=== PATIENT | male | born 1945 | race Caucasian/White ===

== ENCOUNTER 2016-06-30 06:13 | Day surgery (SDC) | payer OTHER ==
[2016-06-24 09:58] VITALS: BMI 25.8
--- NOTE | 2016-06-27 15:49 | HP ---
REASON FOR ADMISSION: Left heart cath, possible angioplasty. BRIEF CLINICAL HISTORY: This 70-year-old male with past medical history significant for coronary art ino disease, status post a stent in 02/2006 and 03/25/2011, hypertension, hyperlipidemia, anemia, wit h recent abnormal stress test and was having chest pain. So, the patient is scheduled for elective c ardiac cath and possible angioplasty. PAST MEDICAL HISTORY: Significant for coronary artery disease, status post a stent 2005, 2010, anemi a, hypertension, hyperlipidemia, type 2 diabetes SOCIAL HISTORY: Denies any history of smoking. Recent cardiac workup as follows: The patient had a stress test on 06/18/2016 that shows normal myoc ardial perfusion study, but during the stress test, the patient underwent 4 minutes and 32 Charles prot ocol. Due to shortness of breath stopped. The patient developed shortness of breath, and 1-[address] depression in II, III, aVF and read by Dr. Moore as a positive abnormal stress test. The nuclear sc an was negative. The patient had previous cardiac workup as patient had an angioplasty in 2005 where a stent was done, multivessel PTCA with stenting of the second diagonal, 1 was done with DUANE deploye d, mid LAD another stent was done and right RPDA stent was done. CURRENT MEDICATIONS: The patient is taking allergy medication, cetirizine, aspirin, gabapentin, enal priya, clopidogrel, atorvastatin, metformin, glyburide, metoprolol. REVIEW OF SYSTEMS: As per HPI. The patient complained of tightness in the chest and shortness of br eath. PHYSICAL EXAMINATION: VITAL SIGNS: Temperature afebrile, heart rate 70, blood pressure 130/80. HEENT: PERRLA. Extraocular muscles intact. NECK: Supple. No carotid bruits. No thyromegaly. CHEST: Clear to auscultation. HEART: S1, S2 regular. ABDOMEN: Soft. EXTREMITIES: Clubbing and cyanosis negative. BLOOD WORKUP: Pending. IMPRESSION: Abnormal stress test, tightness in the chest, history of coronary artery disease, status post stent in 2005 and 2010, diabetes, hypertension, hyperlipidemia, abnormal stress test. RECOMMENDATION: Further recommendation after the stress. We will follow with you. Thank you, Dr. oMore/Dr. Altamirano, for providing us the opportunity in taking care of the patient. We will follow with you. Adonis Mars MD cc: [id number] TT: 06/27/2016 15:49:17 tn
[2016-06-30] MEDS ORDERED: Lidocaine 2% Inj (20ml) ONE (06:37)
[2016-06-30] MEDS ORDERED: Nitroglycerin 50mg in D5W 250 ML IV ONE (06:38)
[2016-06-30] MEDS ORDERED: Iodixanol 320 MG/ML 100 ML BOTTLE IV ONE (06:38)
[2016-06-30] MEDS ORDERED: Iodixanol 320 MG/ML 200 ML BOTTLE IV ONE (06:38)
[2016-06-30] MEDS ORDERED: Iohexol 350mgl/ml 50 ML ONE (06:38)
[2016-06-30 06:46] LABS: ADD MANUAL DIFF? NO
[2016-06-30 07:02] LABS: INR 1.07 (0.93-1.08); PARTIAL THROMBOPLASTIN TIME 25.2 Seconds (23.7-30.8)
[2016-06-30 07:03] LABS: BLOOD UREA NITROGEN 17 mg/dL (7-21); CALCIUM 9.5 mg/dL (8.4-10.5); CARBON DIOXIDE 23 mmol/L (21-33); CHLORIDE 101 mmol/L (98-107); GFR AFRICAN-AMERICAN > 60; GLUCOSE,RANDOM 111 mg/dL (70-110); POTASSIUM 4.8 mmol/L (3.6-5.0); SODIUM 141 mmol/L (132-148)
[2016-06-30 07:10] LABS: BASO # 0.04 [, K/mm3] (0.0-2.0); BASO % 0.4 % (0.0-3.0); EOS # 0.4 (0.0-0.7); EOS % 3.4 % (1.5-5.0); GRAN % 60.4 % (50.0-68.0); HEMATOCRIT 39.4 % (42.0-52.0); LYMPH # 2.9 (1.2-3.4); LYMPH % 26.2 % (22.0-35.0); MEAN CELL VOLUME 85.8 fL (80.0-105.0); MEAN CORPUSCULAR HEMOGLOBIN 29.8 pg (25.0-35.0); MEAN CORPUSCULAR HGB CONC 34.8 g/dl (31.0-37.0); MEAN PLATELET VOLUME 11.5 fl (7.0-11.0); MONO # 1.1 (0.1-0.6); MONO % 9.6 % (1.0-6.0); PLATELET COUNT 249 [, 10^3/uL] (120.0-450.0); RED CELL DISTRIBUTION WIDTH 12.9 % (11.5-14.5); WHITE BLOOD COUNT 11.1 [, 10^3/ul] (4.5-11.0)
[2016-06-30] MEDS ORDERED: Phenylephrine 10 mg/ml Inj ONE (07:10)
[2016-06-30] MEDS ORDERED: Midazolam 2 MG/2 ML VIAL ONE ×2 (07:18→08:35)
[2016-06-30] MEDS ORDERED: Eptifibatide 20 mg/10mL Inj IVP ONE (08:14)
[2016-06-30] MEDS ORDERED: Sodium Chloride 0.9% 1,000 ML IV SCH (09:30)
--- NOTE | 2016-06-30 11:44 | CARD ---
APPROVED REPORT EKG Measurement Heart [id number] <Conclusion> Sinus bradycardia T wave abnormality, consider inferior ischemia Abnormal ECG
[2016-06-30 12:44] LABS: ADD MANUAL DIFF? NO
[2016-06-30 12:49] LABS: BASO # 0.02 [, K/mm3] (0.0-2.0); BASO % 0.2 % (0.0-3.0); EOS # 0.3 (0.0-0.7); EOS % 2.8 % (1.5-5.0); GRAN # 5.45 (1.4-6.5); GRAN % 54.2 % (50.0-68.0); HEMATOCRIT 33.8 % (42.0-52.0); LYMPH # 3.4 (1.2-3.4); LYMPH % 33.9 % (22.0-35.0); MEAN CELL VOLUME 85.4 fL (80.0-105.0); MEAN CORPUSCULAR HEMOGLOBIN 30.3 pg (25.0-35.0); MEAN CORPUSCULAR HGB CONC 35.5 g/dl (31.0-37.0); MONO # 0.9 (0.1-0.6); MONO % 8.9 % (1.0-6.0); PLATELET COUNT 205 [, 10^3/uL] (120.0-450.0); RED CELL DISTRIBUTION WIDTH 12.7 % (11.5-14.5)
[2016-06-30 12:55] LABS: BLOOD UREA NITROGEN 14 mg/dL (7-21); CALCIUM 8.8 mg/dL (8.4-10.5); CARBON DIOXIDE 25 mmol/L (21-33); CHLORIDE 101 mmol/L (95-110); GFR AFRICAN-AMERICAN > 60; GLUCOSE,RANDOM 127 mg/dL (70-110); POTASSIUM 4.1 mmol/L (3.6-5.0); SODIUM 136 mmol/L (132-148)
[2016-06-30] MEDS ORDERED: Bacitracin 500 Units/gm Oint Foilpak UD ONE (14:19)
[2016-06-30 18:17] VITALS: BP 140/71; PULSE 67; RESP 20; TEMP 98.1; O2SAT 100
--- NOTE | 2016-06-30 18:19 | CARD ---
APPROVED REPORT Procedure(s) performed: Left Heart Catheterization PTCA with Balloon Angioplasty of D1 HISTORY The patient is a 70 year-old male with a history of : previous PCI (The PCI date was 03/25/2011), hypertension , dyslipidemia , Hx of CAD , S/P Multiple PTCA 7-8 stents, in 03/12/2006 and 03/25/2011 now developed new onset angina and abnormal stresstest.. INDICATION The indication(s) include : positive stress test, dyspnea. CASE TECHNIQUE The patient was brought electively to the Cardiac Catheterization Laboratory in a fasting state and was prepped and draped in a sterile manner. The left wrist was infiltrated with 2% Lidocaine subcutaneous anesthesia. A sheath was inserted into the left radial artery without difficulty. Coronary angiography was performed using coronary diagnostic catheters. The left coronary system was accessed and visualized with a Diagnostic ,JL3.5, 5Fr catheter. The right coronary system was accessed and visualized with a Diagnostic , JR4.0,5Fr catheter. The left ventricle was accessed and visualized with a pigtail catheter. Left ventricular/Aortic Valve gradient assessed on pullback. Left ventriculogram was performed in DEAN projection. Closure device was deployed with a 6 Fr Angio-Seal without any complications. The patient tolerated the procedure well and there were no complications associated with the procedure. Cath started from left Radial and comple cath done, but could not take Guider for PTCA b/c of severe spasm of left radial , so PTCA done with Right Femoral artery. Vessel Analysis The patient's coronary anatomy is right dominant. The left main coronary artery is a large size vessel without significant stenosis. The left main bifurcates to the left anterior descending and circumflex. The left anterior descending artery is a medium size vessel with diffuse calcification noted throughout this vessel and without significant stenosis. patent stent in oroximal and Mid to distal LAD The first diagonal branch is a medium size vessel with diffuse calcification noted throughout this vessel and with significant stenosis. Proximal end of setnt has 95% stenosis There is a 95% stenosis in the proximal segment. The second diagonal branch is a small size vessel with diffuse calcification noted throughout this vessel and without significant stenosis. The circumflex artery is a medium size vessel with diffuse calcification noted throughout this vessel and without significant stenosis. The first obtuse marginal branch is a medium size vessel with diffuse calcification noted throughout this vessel and without significant stenosis. patent stent noted The right coronary artery is a large size vessel with diffuse calcification noted throughout this vessel and without significant stenosis. patent stent noted distally The right posterior descending artery is a medium size vessel with diffuse calcification noted throughout this vessel and without significant stenosis. patent stent noted proximally Left Ventricle The left ventricle is normal in size with normal contractility. There was no cardiomyopathy. The left ventricular ejection fraction is estimated to be 65%. The left ventricular end diastolic pressure is 14 mmHg. There was no gradient across the aortic valve upon pullback. PCI Technique Lesion Anticoagulation was achieved with Heparin. Percutaneous coronary intervention was performed on the first diagnonal branch segment. The lesion stenosis prior to intervention was 95% with YNES 1 flow. A 6 Fr XB 3 Guide Catheter was used to engage the ostium. BALLOON DILATION A Balloon catheter 2.5 x 8 mm Trek RX was inserted and inflated up to 8.00atm for 12seconds. Multiplt inflatation with 6-10 atmosphere for 20-30 sec. Final angiography reveals 30 % stenosis with YNES 3 flow. COMMENTS Unable to take stent down to D1, Conclusion single vessel Diz D1 95% in Proximal end of stent. Patent stents in Proximal LAD and Mid to Distal LAD. Patent stent in Mid Cx Patent stent in Distal RCA and proximal R PDA. oreserved Lv Fx. Ef-65%. EDP-14 mmof Hg. Successful PTCA (POBA ) of D1, Unable to take stent down. Recommendations Aggressive Medical TherapyCardiac Risk Reduction Program Continue ASA and plavix Cc; Drs. Altamirano/ Oscar.
== END 2016-06-30 18:53 | disposition home or self-care (01) ==
LOC: CATH 06:13 → 2RSO 09:35 → CATH 18:53
PROVIDERS: ATTEND Internal Medicine Cardiovascular Disease
DX: I25.10 Atherosclerotic heart disease of native coronary artery without angina pectoris (principal); I10 Essential (primary) hypertension; E78.5 Hyperlipidemia, unspecified; E11.9 Type 2 diabetes mellitus without complications; D64.9 Anemia, unspecified; R06.00 Dyspnea, unspecified; R94.39 Abnormal result of other cardiovascular function study; Z95.5 Presence of coronary angioplasty implant and graft
CPT/HCPCS: 36415; 80048; 85025; 85175; 85610; 85730; 86850; 86900; 92920; 93005; 93458; 99152; 99153; C1725; C1760; C1769 ×3; C1887 ×3; C2629; J1327; J1644 ×2; J2250; J3010; J7040 ×2

== ENCOUNTER 2016-10-18 12:24 | Emergency (ER) | payer OTHER ==
--- NOTE | 2016-10-18 12:55 | ED PDOC ---
Arrival/HPI - General Chief Complaint: Back Pain Time Seen by Provider: 10/18/16 12:42 Historian: Patient - History of Present Illness Narrative History of Present Illness (Text): 10/18/16 12:54 This 71 yo male presents to this ED c/o b/l lower back pain x 2 days. Denies flank pain, fever, or urinary symptoms. Time/Duration: Other (2 days) Context: Home Past Medical History - Provider Review Nursing Documentation Reviewed: Yes - Infectious Disease Hx of Infectious Diseases: None - Tetanus Immunization Tetanus Immunization: Unknown - Cardiac Hx Hypertension: Yes - Endocrine/Metabolic Hx Diabetes Mellitus Type 2: Yes - Hematological/Oncological Hx Blood Transfusions: No Hx Blood Transfusion Reaction: No - Musculoskeletal/Rheumatological Hx Musculoskeletal Disorders: No - Psychiatric Hx Emotional Abuse: No Hx Physical Abuse: No Hx Substance Use: No - Past Surgical History Past Surgical History: Unable to Obtain - Surgical History Hx Appendectomy: Yes - Anesthesia Hx Anesthesia Reactions: No Hx Malignant Hyperthermia: No - Suicidal Assessment Feels Threatened In Home Enviroment: No Family/Social History - Physician Review Nursing Documentation Reviewed: Yes Family/Social History: No Known Family HX Smoking Status: Never Smoked Hx Alcohol Use: No Hx Substance Use: No Hx Substance Use Treatment: No Allergies/Home Meds Allergies/Adverse Reactions: Allergies No Known Allergies Allergy (Verified 10/23/16 06:32) Home Medications: Home Meds Medication Instructions Recorded Confirmed Clopidogrel [Plavix] 75 mg PO DAILY 03/19/13 10/23/16 Aspirin [Ecotrin] 81 mg PO DAILY 04/30/16 10/23/16 Atorvastatin [Lipitor] 40 mg PO DAILY 04/30/16 10/23/16 Enalapril Maleate [Vasotec] 10 mg PO DAILY 04/30/16 10/23/16 Gabapentin [Gralise] 300 mg PO BID 04/30/16 10/18/16 Famotidine [Pepcid] 20 mg PO DAILY 06/18/16 10/23/16 GlipiZIDE SR [Glucotrol XL] 5 mg PO DAILY 10/18/16 10/23/16 Metformin HCl [Glucophage] 1,000 mg PO DAILY 10/18/16 10/23/16 Gabapentin [Neurontin] 300 mg PO BID 10/23/16 10/23/16 Review of Systems - Review of Systems Constitutional: Normal. absent: Fatigue, Weight Change, Fevers Eyes: Normal ENT: Normal Respiratory: Normal. absent: SOB, Cough Cardiovascular: Normal. absent: Chest Pain Gastrointestinal: Normal. absent: Abdominal Pain, Nausea, Vomiting Genitourinary Male: Normal. absent: Dysuria, Frequency, Hematuria Musculoskeletal: Back Pain. absent: Neck Pain, Joint Swelling Skin: Normal Neurological: Normal Endocrine: Normal Hemo/Lymphatic: Normal Psychiatric: Normal Physical Exam Vital Signs Temp Pulse Resp BP Pulse Ox 10/18/16 14:33 98.0 F 60 18 138/70 98 10/18/16 12:25 97.9 F 59 L 18 139/79 98 Temperature: Afebrile Blood Pressure: Normal Pulse: Regular Respiratory Rate: Normal Appearance: Positive for: Well-Appearing, Non-Toxic, Comfortable Pain Distress: None Mental Status: Positive for: Alert and Oriented X 3 - Systems Exam Head: Present: Atraumatic, Normocephalic Pupils: Present: PERRL Extroacular Muscles: Present: EOMI Conjunctiva: Present: Normal Mouth: Present: Moist Mucous Membranes Neck: Present: Normal Range of Motion Respiratory/Chest: Present: Clear to Auscultation, Good Air Exchange. No: Respiratory Distress, Accessory Muscle Use Cardiovascular: Present: Regular Rate and Rhythm, Normal S1, S2. No: Murmurs Abdomen: Present: Normal Bowel Sounds. No: Tenderness, Distention, Peritoneal Signs Back: Present: Normal Inspection, Paraspinal Tenderness (mild b/l paravertebral tenderness. No vertebral step off. No vertebral point tenderness.). No: CVA Tenderness, Midline Tenderness Upper Extremity: Present: Normal Inspection. No: Cyanosis, Edema Lower Extremity: Present: Normal Inspection. No: Edema Neurological: Present: GCS=15, CN II-XII Intact, Speech Normal, Motor Func Grossly Intact, Normal Sensory Function, Normal Cerebellar Funct, Gait Normal, Memory Normal Skin: Present: Warm, Dry, Normal Color. No: Rashes Psychiatric: Present: Alert, Oriented x 3, Normal Insight, Normal Concentration Medical Decision Making ED Course and Treatment: Re-evaluation. Patient feels better. Discussed results and plan with patient who expresses understanding. All questions answered and there is agreement with the plan to discharge home with instructions. Patient stable for discharge. Return if symptoms persist or worsen. Re-evaluation Time: 14:20 Reassessment Condition: Re-examined, Improved - Lab Interpretations Lab Results: Lab Results 10/18/16 13:11: Urine Color Yellow, Urine Appearance Clear, Urine pH 6.0, Ur Specific Snook 1.010, Urine Protein Negative, Urine Glucose (UA) Negative, Urine Ketones Negative, Urine Blood Negative, Urine Nitrate Negative, Urine Bilirubin Negative, Urine Urobilinogen 0.2, Ur Leukocyte Esterase Negative I have reviewed the lab results: Yes Interpretation: No clinic. lab abnormalty - RAD Interpretation Narrative RAD Interpretations (Text): 10/18/16 14:20 Accession No. : [id number] Patient Name / ID : VENKATESH JORDAN / [id number] Exam Date : 10/18/2016 13:29:56 ( Approved ) Study Comment : Sex / Age : M / 71Y Creator : Alin Hoyt MD Dictator : Alin Hoyt MD Molecular Geneticist : Chip Crusher Operator : Alin Hoyt MD Approver2 : Report Date : 10/18/2016 14:10:29 My Comment : PROCEDURE: Lumbar spine dated 10/18/2016 HISTORY: pain COMPARISON: No prior. FINDINGS: BONES: No acute compression fracture nor retropulsed fragments. Minor chronic anterior stature loss of the L1 segment felt to be degenerative in origin. There is straightening of the normal lumbar lordosis however vertebral bodies otherwise exhibit normal alignment. Facets normally aligned. DISC SPACES: Multilevel degenerative spondylosis. Changes include varying degrees of disc space narrowing more so along the posterior disc margin with endplate eburnation and anterolateral osteophyte formation. Multilevel facet arthropathy. OTHER FINDINGS: SI joints are patent and intact Large amount stool seen throughout the colon consistent with fecal retention/ constipation IMPRESSION: No acute fractures. Minor chronic anterior stature loss of the L1 segment felt to be degenerative in origin. Moderate degenerative spondylosis. Findings consistent with constipation. Radiology Orders: 10/18/16 12:55 LS SPINE WITH OBL > 18 YRS OLD [RAD] Stat Disposition/Present on Arrival - Present on Arrival Any Indicators Present on Arrival: No History of DVT/PE: No History of Uncontrolled Diabetes: No Urinary Catheter: No History of Decub. Ulcer: No History Surgical Site Infection Following: None - Disposition Have Diagnosis and Disposition been Completed?: Yes Diagnosis: Back pain, Constipation Disposition: HOME/ ROUTINE Disposition Time: 14:21 Patient Plan: Discharge Condition: GOOD Discharge Instructions (ExitCare): Constipation (ED), Back Pain (ED) Additional Instructions: Call private doctor for follow up visit in 1-2 days. Take medication as instructed. retirn to emergency if symptoms worsen Prescriptions: Docusate Sodium [Colace] 100 mg PO BID #30 capsule Referrals: Alyssa Altamirano MD [Primary Care Provider] - Follow up with primary
[2016-10-18 12:59] VITALS: BMI 25.2
[2016-10-18 13:00] VITALS: RESP 18; O2SAT 98
[2016-10-18 13:15] LABS: URINE BILIRUBIN NEGATIVE (NEGATIVE); URINE BLOOD NEGATIVE (NEGATIVE); URINE GLUCOSE (UA) NEGATIVE (NEGATIVE); URINE LEUKOCYTE ESTERASE NEGATIVE Leu/uL (NEGATIVE); URINE NITRATE NEGATIVE (NEGATIVE); URINE PROTEIN NEGATIVE mg/dL (<30 mg/dL); URINE UROBILINOGEN 0.2 E.U./dL (<1 E.U./dL)
[2016-10-18 13:16] LABS: URINE APPEARANCE CLEAR (CLEAR); URINE COLOR YELLOW (YELLOW)
--- NOTE | 2016-10-18 14:12 | RAD ---
PROCEDURE: Lumbar spine dated 10/18/2016 HISTORY: pain COMPARISON: No prior. FINDINGS: BONES: No acute compression fracture nor retropulsed fragments. Minor chronic anterior stature loss of the L1 segment felt to be degenerative in origin. There is straightening of the normal lumbar lordosis however vertebral bodies otherwise exhibit normal alignment. Facets normally aligned. DISC SPACES: Multilevel degenerative spondylosis. Changes include varying degrees of disc space narrowing more so along the posterior disc margin with endplate eburnation and anterolateral osteophyte formation. Multilevel facet arthropathy. OTHER FINDINGS: SI joints are patent and intact Large amount stool seen throughout the colon consistent with fecal retention/ constipation IMPRESSION: No acute fractures. Minor chronic anterior stature loss of the L1 segment felt to be degenerative in origin. Moderate degenerative spondylosis. Findings consistent with constipation.
[2016-10-18 14:33] VITALS: BP 138/70; PULSE 60; TEMP 98
== END 2016-10-18 15:09 | disposition home or self-care (01) ==
LOC: ED 12:24
DX: K59.00 Constipation, unspecified (principal); M54.9 Dorsalgia, unspecified

== ENCOUNTER 2016-10-23 06:21 | Emergency (ER) | payer OTHER ==
[2016-10-23 06:22] VITALS: BMI 25.2
[2016-10-23 06:37] VITALS: RESP 18; TEMP 97.7; O2SAT 97
--- NOTE | 2016-10-23 07:29 | ED PDOC ---
Arrival/HPI - General Chief Complaint: Lower Extremity Problem/Injury Time Seen by Provider: 10/23/16 07:05 Historian: Patient - History of Present Illness Narrative History of Present Illness (Text): 10/23/16 07:26 Adonis Moore is a 71 year old male, with a history of hypertension and diabetes, presents to the emergency department complaining of right lower extremity pain since yesterday morning. Patient took Advil and was started on Flexeril by PMD . Reports that symptoms have worsened despite taking medications. No history of trauma. Denies any fever, chills, chest pain, shortness of breath, numbness/weakness of extremity, urinary complaints or any other complaints at this time. PMD: Time/Duration: Other (yesterday morning ) Symptom Onset: Gradual Severity Level: Mild Activities at Onset: Light Context: Home Past Medical History - Provider Review Nursing Documentation Reviewed: Yes - Infectious Disease Hx of Infectious Diseases: None - Tetanus Immunization Tetanus Immunization: Unknown - Cardiac Hx Hypertension: Yes - Pulmonary Hx Respiratory Disorders: No - Neurological Hx Neurological Disorder: No - HEENT Hx HEENT Disorder: No - Renal Hx Renal Disorder: No - Endocrine/Metabolic Hx Diabetes Mellitus Type 2: Yes - Hematological/Oncological Hx Blood Disorders: No Hx Blood Transfusions: No Hx Blood Transfusion Reaction: No - Integumentary Hx Dermatological Disorder: No - Musculoskeletal/Rheumatological Hx Musculoskeletal Disorders: No - Gastrointestinal Hx Gastrointestinal Disorders: No - Genitourinary/Gynecological Hx Genitourinary Disorders: No - Psychiatric Hx Psychophysiologic Disorder: No Hx Emotional Abuse: No Hx Physical Abuse: No Hx Substance Use: No - Past Surgical History Past Surgical History: Unable to Obtain - Surgical History Hx Appendectomy: Yes - Anesthesia Hx Anesthesia Reactions: No Hx Malignant Hyperthermia: No - Suicidal Assessment Feels Threatened In Home Enviroment: No Family/Social History - Physician Review Nursing Documentation Reviewed: Yes Family/Social History: No Known Family HX Smoking Status: Never Smoked Hx Alcohol Use: No Hx Substance Use: No Hx Substance Use Treatment: No Allergies/Home Meds Allergies/Adverse Reactions: Allergies No Known Allergies Allergy (Verified 10/23/16 06:32) Home Medications: Home Meds Medication Instructions Recorded Confirmed Clopidogrel [Plavix] 75 mg PO DAILY 03/19/13 10/23/16 Aspirin [Ecotrin] 81 mg PO DAILY 04/30/16 10/23/16 Atorvastatin [Lipitor] 40 mg PO DAILY 04/30/16 10/23/16 Enalapril Maleate [Vasotec] 10 mg PO DAILY 04/30/16 10/23/16 Gabapentin [Gralise] 300 mg PO BID 04/30/16 10/18/16 Famotidine [Pepcid] 20 mg PO DAILY 06/18/16 10/23/16 GlipiZIDE SR [Glucotrol XL] 5 mg PO DAILY 10/18/16 10/23/16 Metformin HCl [Glucophage] 1,000 mg PO DAILY 10/18/16 10/23/16 Gabapentin [Neurontin] 300 mg PO BID 10/23/16 10/23/16 Physical Exam - Physical Exam Narrative Physical Exam (Text): - Review of Systems Constitutional: Normal. absent: Fatigue, Weight Change, Fevers Eyes: Normal ENT: Normal Respiratory: Normal absent: SOB, Cough, Sputum Cardiovascular: Normal absent: Chest pain, Palpitations, Syncope Gastrointestinal: Normal absent: Abdominal pain, Diarrhea, Nausea, Vomiting Genitourinary: Normal. absent: Dysuria, Frequency, Hematuria Musculoskeletal: Right leg pain (posterior thigh and calf) absent: Arthralgias , Back Pain, Neck Pain Skin: Normal Neurological: Normal absent: Focal Weakness Endocrine: Normal Hemo/Lymphatic: Normal Psychiatric: Normal - Physical exam Patient appears age appropriate, speaking full sentences without difficulty - Systems Exam Head: Present: Atraumatic, Normocephalic Pupils: Present: PERRL Extraocular Muscles: Present: EOMI Conjunctiva: Present: Normal Mouth: Present: Moist Mucous Membranes Neck: Present: Normal Range of Motion. No: MIDLINE TENDERNESS, Paraspinal Tenderness Respiratory/Chest: Present: Clear to Auscultation, Good Air Exchange. No: Respiratory Distress, Accessory Muscle Use, Tachypnic Cardiovascular: Present: Regular Rate and Rhythm, Normal S1, S2, Peripheral Pulses Present. No: Murmurs Abdomen: Present: Normal Bowel Sounds, No: Tenderness, Peritoneal Signs, Rebound, Guarding, Distention Back: Present: Normal Inspection. No: Midline Tenderness, Paraspinal Tenderness Upper Extremity: Present: Normal Inspection. No: Cyanosis, Edema Lower Extremity: Present: Full active and passive range of motion at r.knee, and r.ankle. Hip unremarkable. Normal pulses. Sensation intact. No discoloration. No: Edema Neurological: Present: GCS=15, Speech Normal, cranial nerves II through XII fully intact with no cerebellar abnormality, neuro-sensory fully intact. No focal neurological deficits. Skin: Present: Warm, Dry, Normal Color. No: Rashes Lymphatic: Present: OX3, NI, NC Psychiatric: Present: Alert, Oriented x 3, Normal Insight, Normal Concentration Vital Signs Reviewed: Yes Vital Signs Temp Pulse Resp BP Pulse Ox 10/23/16 06:33 97.7 F 67 18 170/72 H 97 10/23/16 06:22 97.7 F 67 18 170/72 H 97 Temperature: Afebrile Blood Pressure: Hypertensive Pulse: Regular Respiratory Rate: Normal Appearance: Positive for: Well-Appearing, Non-Toxic, Comfortable Pain Distress: None Mental Status: Positive for: Alert and Oriented X 3 Medical Decision Making ED Course and Treatment: 10/23/16 07:33 Impression: A 71 year old male who presents to the emergency department complaining of right leg pain for past day. No acute findings on PE. Distal neurovascular fully intact. +pulses, no swelling, no disclolration. BP elevated, pt has a hx of HTN, asymptomatic Differential Diagnosis included but are not limited to: DVT vs. Musculoskeletal vs. peripheral neuropathy Plan: -- Toradol -- US Right LE -- Reassess and disposition Prior Visits: Notes and results from previous visits were reviewed. Patient had a negative stress test on 06/18/2016. He was seen at the emergency department on 10/18/16 for back pain. Discharged home after a negative Lumbar Spine X-ray which showed moderate degenerative spondolysis. He was seen by PMD after his previous visit to emergency department and has an outpatient MRI appointment on 10/25/2016. Progress Notes: 10/23/16 08:06 US nuclear chemistry technician informs of negative DVT study. 10/23/16 08:15 pt in no distress, states he feels better ambulates without difficulty pt states he can f/u with Dr. Altamirano states he has MRI scheduled this week Pt states he understands to return to the ER right away for new or worsening symptoms or for inability to f/u with PMD or specialist as instructed. Patient states that he fully agrees with and understands discharge instructions. States that he agrees with the plan and disposition. Verbalized and repeated discharge instructions and plan. I have given the patient opportunity to ask any additional questions. - RAD Interpretation Radiology Orders: 10/23/16 07:26 DUPLEX LOWER EXTRM VEIN RIGHT [US] Stat - Medication Orders Current Medication Orders: Discontinued Medications Ketorolac Tromethamine (Toradol) 15 mg IM STAT STA Stop: 10/23/16 07:27 Last Admin: 10/23/16 07:36 Dose: 15 mg - Scribe Statement The provider has reviewed the documentation as recorded by the Scribe Clara Matamoros Provider Attestation: Provider Scribe Attestation: All medical record entries made by the Scribe were at my direction and personally dictated by me. I have reviewed the chart and agree that the record accurately reflects my personal performance of the history, physical exam, medical decision making, and the department course for this patient. I have also personally directed, reviewed, and agree with the discharge instructions and disposition. Disposition/Present on Arrival - Present on Arrival Any Indicators Present on Arrival: No History of DVT/PE: No History of Uncontrolled Diabetes: No Urinary Catheter: No History of Decub. Ulcer: No History Surgical Site Infection Following: None - Disposition Have Diagnosis and Disposition been Completed?: Yes Diagnosis: Leg pain Disposition: HOME/ ROUTINE Disposition Time: 08:19 Patient Plan: Discharge Patient Problems: Current Active Problems Problem Status Onset Leg pain Acute Condition: GOOD Discharge Instructions (ExitCare): Leg Pain (ED) Additional Instructions: PLEASE RETURN TO THE EMERGENCY DEPARTMENT FOR NEW OR WORSENING SYMPTOMS. RETURN RIGHT AWAY IF YOU CANNOT FOLLOW UP WITH YOUR PRIMARY CARE DOCTOR, CLINIC, OR SPECIALIST IN 1-2 DAYS. Referrals: Alyssa Altamirano MD [Primary Care Provider] - Follow up with primary
[2016-10-23 08:26] VITALS: BP 142/66; PULSE 69
--- NOTE | 2016-10-23 14:07 | US ---
PROCEDURE: Right lower extremity venous US HISTORY: Leg pain and swelling. Evaluate for DVT. PHYSICIAN(S): Minh Alvarado M.D. TECHNIQUE: Duplex sonography and color-flow Doppler with graded compression were used to evaluate the deep venous system of the right lower extremity. FINDINGS: The visualized deep venous system of the right lower extremity is sonographically normal and compressible. Normal waveforms and augmentation are seen. There is no sonographic evidence for deep venous thrombosis in the visualized segments of the right lower extremity. IMPRESSION: 1. No sonographic evidence for deep venous thrombosis in the visualized segments of the right lower extremity.
[2016-10-24 09:24] LABS: BASO # 0.01 K/mm3 (0.0-2.0); BASO % 0.1 % (0.0-3.0); EOS # 0.4 (0.0-0.7); EOS % 3.7 % (1.5-5.0); GRAN # 7.78 (1.4-6.5); GRAN % 69.6 % (50.0-68.0); HEMOGLOBIN 10.8 gm/dL (14.0-18.0); LYMPH # 2.3 (1.2-3.4); LYMPH % 20.8 % (22.0-35.0); MEAN CELL VOLUME 85.2 fL (80.0-105.0); MEAN CORPUSCULAR HEMOGLOBIN 28.5 pg (25.0-35.0); MEAN CORPUSCULAR HGB CONC 33.4 g/dl (31.0-37.0); MEAN PLATELET VOLUME 10.5 fl (7.0-11.0); MONO # 0.7 (0.1-0.6); MONO % 5.8 % (1.0-6.0); PLATELET COUNT 240 10^3/uL (120.0-450.0); RBC 3.79 10^6/uL (3.5-6.1); RED CELL DISTRIBUTION WIDTH 14.8 % (11.5-14.5); WHITE BLOOD COUNT 11.2 10^3/ul (4.5-11.0)
[2016-10-24 09:32] LABS: BLOOD UREA NITROGEN 38 mg/dL (7-21); CALCIUM 9.7 mg/dL (8.4-10.5); GFR AFRICAN-AMERICAN 31; GFR NON-AFRICAN AMERICAN 26
[2016-10-24 10:04] LABS: T3 1.12 ng/mL (0.97-1.69)
[2016-10-24 17:28] LABS: FOLATE > 20.0 ng/mL
== END 2016-10-23 08:26 | disposition home or self-care (01) ==
LOC: ED 06:21
DX: M79.604 Pain in right leg (principal); E11.9 Type 2 diabetes mellitus without complications; I10 Essential (primary) hypertension
CPT/HCPCS: 93971; 96372; 99284; J1885

== ENCOUNTER 2018-02-22 06:35 | Day surgery (SDC) | payer MEDICARE, OTHER ==
[2018-02-18 11:28] VITALS: BMI 25.8
--- NOTE | 2018-02-20 01:53 | HP ---
REASON FOR ADMISSION: Left heart cath, possible angioplasty, abnormal stress test. BRIEF CLINICAL HISTORY: This is a 72-year-old male with past medical history significant for hypertension, hyperlipidemia, type 2 diabetes, history of coronary artery disease status post stent in 2005 and 2010 and plain balloon angioplasty of diagonal 1 in June 2016, admitted for elective cardiac cath, possible angioplasty because of abnormal stress test. PAST MEDICAL HISTORY: Past history significant for type 2 diabetes, hypertension, hyperlipidemia, anemia, history of stent in 2005 and 2010 and plain balloon angioplasty diagonal 1. SOCIAL HISTORY: Alcohol, has a history of alcohol abuse. CURRENT MEDICATION: The patient is taking aspirin 81 mg daily, enalapril 10 mg daily, glimepiride 4 mg daily, gabapentin 300 mg daily, Pepcid , atorvastatin 40, aspirin 81, amlodipine 5 mg, clopidogrel 75 mg, metoprolol tartrate 25, metformin 1 g twice daily. ALLERGIES: No known drug allergies. REVIEW OF SYSTEMS: As per HPI. PHYSICAL EXAMINATION VITAL SIGNS: As follows; height of the patient 5 feet 6 inches, weight of the patient 161, body mass index 25.6 mg/m2. Temperature afebrile, heart rate 60, blood pressure 130/80. HEENT: PERRLA intact. NECK: Supple. No carotid bruit or thyromegaly. CHEST: Clear to auscultation. HEART: S1 and S2 regular. ABDOMEN: Soft. EXTREMITIES: Clubbing and cyanosis negative. Previous cardiac workup as follow: The patient had a stress test on 02/15/2018 that showed ejection fraction of 72%, normal echocardiography perfusion study, no segmental wall motion abnormality. Myoview stopped after 5 minutes 34 seconds Charles protocol due to fatigue and tiredness in the chest. The patient achieved more than 100% predicted heart rate, ST depression 1 to 2 mm, 2, 3 AVF, read as abnormal stress test. Echo dated 02/15/2018 showed normal chamber size ejection fraction 55 to 60%, trace aortic regurgitation, mild mitral regurgitation, mild tricuspid regurgitation, RV systolic pressure of 51. IMPRESSION: A 72-year-old male with past history significant for coronary artery disease status post multiple stent in 2005 and 2010, and plain balloon angioplasty of diagonal 1 in 2006, then had a chest pain recurrent abnormal stress test. Nuclear component is negative, stress portion was positive with chest pain. The patient walks for the treadmill 5 minutes and 34 seconds with [address] depression, 2, 3 AV, AV 5, 6. Abnormal stress test scheduled for elective cardiac cath possible angioplasty. Preserved LV function ejection fraction 72% by stress test by echo 55 to 60%. Mild tricuspid regurgitation, mild mitral regurgitation. RECOMMENDATION: We will load aspirin and Plavix. Further recommendation after cardiac catheterization. Further recommendations after cardiac cath. We will follow with you. Thank you Adonis Mars MD (Delete this signature block when dictator is a preceptor.) cc: MD Lamont (Delete if not dictated.)
[2018-02-22] MEDS ORDERED: Lidocaine 2% Inj (20ml) ONE (07:01)
[2018-02-22] MEDS ORDERED: Iohexol 350mgl/ml 50 ML ONE (07:02)
[2018-02-22] MEDS ORDERED: Verapamil 0 ML ONE (07:02)
[2018-02-22] MEDS ORDERED: Phenylephrine 10 mg/ml Inj ONE (07:02)
[2018-02-22] MEDS ORDERED: Iodixanol 320 MG/ML 100 ML BOTTLE IV ONE (07:02)
[2018-02-22] MEDS ORDERED: Iodixanol 320 MG/ML 200 ML BOTTLE IV ONE (07:02)
[2018-02-22] MEDS ORDERED: Nitroglycerin 50mg in D5W 0 MG/0 ML BOTTLE IV ONE (07:03)
[2018-02-22 07:09] LABS: BASO # 0.02 K/mm3 (0.0-2.0); BASO % 0.2 % (0.0-3.0); EOS # 0.7 (0.0-0.7); EOS % 7.8 % (1.5-5.0); GRAN # 4.13 (1.4-6.5); GRAN % 49.4 % (50.0-68.0); HEMOGLOBIN 12.3 g/dL (14.0-18.0); LYMPH # 2.8 (1.2-3.4); MEAN CELL VOLUME 86.7 fl (80.0-105.0); MEAN CORPUSCULAR HEMOGLOBIN 28.7 pg (25.0-35.0); MEAN CORPUSCULAR HGB CONC 33.2 g/dl (31.0-37.0); MEAN PLATELET VOLUME 11.2 fl (7.0-11.0); MONO # 0.7 (0.1-0.6); MONO % 8.6 % (1.0-6.0); RBC 4.28 10^6/uL (3.5-6.1); WHITE BLOOD COUNT 8.4 10^3/uL (4.5-11.0)
[2018-02-22 07:13] LABS: BLOOD UREA NITROGEN 19 mg/dL (7-21); CALCIUM 9.5 mg/dL (8.4-10.5); GFR NON-AFRICAN AMERICAN > 60; HDL CHOLESTEROL 43 mg/dL (29-60)
[2018-02-22 07:18] LABS: INR 0.99; PROTHROMBIN TIME 11.4 SECONDS (9.4-12.5)
[2018-02-22 07:19] VITALS: RESP 18; O2SAT 99
[2018-02-22 07:25] LABS: LDL CHOLESTEROL 55 mg/dL (0-129)
[2018-02-22] MEDS ORDERED: Midazolam 2 MG/2 ML VIAL ONE (07:46)
[2018-02-22] MEDS ORDERED: Eptifibatide 20 mg/10mL Inj IVP ONE (08:12)
--- NOTE | 2018-02-22 09:10 | CARD ---
APPROVED REPORT Date of service: 02/22/2018 EKG Measurement Heart [id number] <Conclusion> Marked sinus bradycardia RVCD Leftward axis C/W ECG 06/30/16: inferior T waves no longer inverted and the rate is slower
[2018-02-22] MEDS ORDERED: Sodium Chloride 0.9% 1,000 ML IV SCH (09:15)
--- NOTE | 2018-02-22 09:54 | CPOSTOP ---
DATE: 02/22/2018 CARDIOVASCULAR LAB POST PROCEDURE NOTE DICTATING PHYSICIAN: Adonis Mars MD. PRACTICING DERMATOLOGIST: ALIX Caldera TYPE OF ANESTHESIA: Moderate conscious sedation, total 2 mg of Versed, 100 of fentanyl given. PRE-PROCEDURE DIAGNOSIS: Unstable angina, abnormal stress test. PROCEDURES PERFORMED: 1. Left heart catheterization. 2. Stenting of proximal right coronary artery, 3.stenting of diagonal 1after percutaneous transluminal coronary angioplasty with the scoring balloon. FINDINGS: Two-vessel coronary artery disease. FINAL DIAGNOSIS: Multivessel coronary artery disease, patent previous stents, except D1 Instent restenosis. POST-PROCEDURE CONDITION: Post procedure, the patient's condition is stable. VASCULAR ACCESS SITE: Right femoral artery. CLOSURE DEVICE: Angio-Seal. TOTAL RADIATION DOSE: 03911.40 milligray unit. TOTAL FLUORO TIME: 13.8 minutes. Adonis Mars MD MTDD
[2018-02-22] MEDS ORDERED: Insulin Reg-LOW-Coverage SC SCH (11:30)
[2018-02-22 13:06] LABS: BASO # 0.02 K/mm3 (0.0-2.0); BASO % 0.3 % (0.0-3.0); EOS # 0.5 (0.0-0.7); EOS % 6.2 % (1.5-5.0); GRAN # 4.25 (1.4-6.5); GRAN % 55.1 % (50.0-68.0); LYMPH # 2.2 (1.2-3.4); LYMPH % 28.5 % (22.0-35.0); MEAN CELL VOLUME 86.6 fl (80.0-105.0); MEAN CORPUSCULAR HEMOGLOBIN 28.9 pg (25.0-35.0); MEAN CORPUSCULAR HGB CONC 33.4 g/dl (31.0-37.0); MEAN PLATELET VOLUME 10.1 fl (7.0-11.0); MONO # 0.8 (0.1-0.6); MONO % 9.9 % (1.0-6.0); RBC 3.8 10^6/uL (3.5-6.1); WHITE BLOOD COUNT 7.7 10^3/uL (4.5-11.0)
[2018-02-22 13:13] LABS: BLOOD UREA NITROGEN 16 mg/dL (7-21); CALCIUM 8.5 mg/dL (8.4-10.5); GFR NON-AFRICAN AMERICAN > 60
--- NOTE | 2018-02-22 14:12 | CARD ---
APPROVED REPORT Date of service: 02/22/2018 EKG Measurement Heart [id number] <Conclusion> Sinus bradycardia LVH by voltage
--- NOTE | 2018-02-22 18:18 | CARD ---
APPROVED REPORT Date of service: 02/22/2018 Procedure(s) performed: Left Heart Catheterization PTCA with Stenting of proximal RCA with DUANE PTCA with Stenting of D1 with DUANE after PTCA with Scorring balloon HISTORY The patient is a 72 year-old male with a history of : most recent EF: 72%. (EF Method: RADIONUCLIDE), diabetes mellitus with oral treatment , previous diagnostic cath, previous PCI (The PCI date was 06/30/2016), hypertension , dyslipidemia , had abnornal stress test with ischemic changes in leads II,III. and Avf [address] depression. INDICATION The indication(s) include : positive stress test. CASE TECHNIQUE The patient was brought electively to the Cardiac Catheterization Laboratory in a fasting state and was prepped and draped in a sterile manner. The right femoral groin was infiltrated with 2% Lidocaine subcutaneous anesthesia. A 6FR GLIDESHEATH ACCESS KIT sheath was inserted into the right femoral artery without difficulty. Coronary angiography was performed using coronary diagnostic catheters. The left coronary system was accessed and visualized with a Diagnostic , 5F JL 4 CATH DXT 100 CM catheter. The right coronary system was accessed and visualized with a Diagnostic ,5F JR 4 CATH DXT 100 CM catheter. The left ventricle was accessed and visualized with a 5F PIGTAIL 145 CATH DXT 110 CM catheter. Left ventricular/Aortic Valve gradient assessed on pullback. Left ventriculogram was performed in DEAN projection. Closure device was deployed with a 6 Fr Angio-Seal without any complications. The patient tolerated the procedure well and there were no complications associated with the procedure. Vessel Analysis The patient's coronary anatomy is right dominant. The left main coronary artery is a large size vessel with diffuse calcification noted throughout this vessel and without significant stenosis. The left main bifurcates to the left anterior descending and circumflex. The left anterior descending artery is a medium size vessel with diffuse calcification noted throughout this vessel and without significant stenosis. patent stent in mid LAD The first diagonal branch is a medium size vessel with diffuse calcification noted throughout this vessel and with significant stenosis. There is a 99% stenosis in the ostial and proximal segment , instent restenosis.. The circumflex artery is a medium size vessel with diffuse calcification noted throughout this vessel and without significant stenosis. There is a 30-40% stenosis in the proximal and mid segment. The first obtuse marginal branch is a medium size vessel with diffuse calcification noted throughout this vessel and without significant stenosis. patent stent in distal segment The right coronary artery is a large size vessel with diffuse calcification noted throughout this vessel and with significant stenosis. There is a 90% stenosis in the proximal segment. patent stent in distal segment The right posterior descending artery is a medium size vessel with diffuse calcification noted throughout this vessel and without significant stenosis. patent stent in Mid RPDA The right posterolateral branch is a medium size vessel with diffuse calcification noted throughout this vessel and without significant stenosis. Left Ventricle The left ventricle is normal in size with normal contractility. There was no cardiomyopathy. The left ventricular ejection fraction is estimated to be 55-60%. The left ventricular end diastolic pressure is 15-18 mmHg. There was no gradient across the aortic valve upon pullback. PCI Technique Lesion Percutaneous coronary intervention was performed on the proximal right coronary artery. The lesion stenosis prior to intervention was 90% with YNES 2 flow. A 6 Fr JR 3.5 Guide Catheter was used to engage the ostium. A Luge 182 Interventional Guidewire was used to cross the lesion. BALLOON DILATION A Balloon catheter 2.5 x 6 mm Sprinter RX was inserted and inflated up to 10.00atm for 11seconds. STENT DEPLOYMENT A drug-eluting stent STENT RESOLUTE NAHUM 2.75 X12 was inserted and inflated up to 10.00atm for 11seconds. POST STENT DEPLOYMENT BALLOON DILATION A Balloon catheter 3.0 x 9 mm Sprinter NC was inserted and inflated up to 14.00atm for 5seconds. Final angiography reveals 0 % stenosis with YNES 3 flow. PCI Technique Lesion 2 Percutaneous Coronary Intervention was performed on the first diagnonal branch segment. The lesion stenosis prior to intervention was 99% with YNES 1 flow. A 6 Fr XB 3 Guide Catheter was used to engage the ostium. A Luge 182 Interventional Guidewire was used to cross the lesion. BALLOON DILATION A Balloon catheter 2.5 x 6 mm Sprinter RX was inserted and inflated up to 12.00atm for 17seconds. then 2.0/12 scorring Balloon used and inflated to 10 atmos for 20 secods for two inflations. STENT DEPLOYMENT A drug-eluting stent STENT RESOLUTE NAHUM 2.25 X 08 was inserted and inflated up to 12.00atm for 10seconds. Final angiography reveals 0 % stenosis with YNES 3 flow. Conclusion Two vessel CAD involving proximal RCA 90% and D1 instent restenosis 99% Rest of all previous Stents are patent Preserved LV Fx, EF-55-60%, EDP-15-18 mmof Hg. Successful PTCa with DUANE in RCA anD D1 after PTCa with scorring Balloon. Recommendations Daily ASA with Plavix for at least one year Aggressive Medical TherapyCardiac Risk Reduction Program Since pt. has multple stents suggest P2Y12 (PRU) test on Thursday to assess resistance of Plavix, also suggest F/u stress test with nuclear imaging in 6-12 months to ensure patency of stents and monitor progression of CAD. Cc; Drs. Altamirano/ Oscar.
[2018-02-23 00:10] VITALS: BP 139/68; PULSE 62; TEMP 98.3
[2018-02-23] MEDS ORDERED: ENALAPRIL MALEATE 10 MG PO SCH (10:00)
== END 2018-02-22 16:07 | disposition home or self-care (01) ==
LOC: CATH 06:35 → 2RSO 09:10 → CATH 16:07
PROVIDERS: ATTEND Internal Medicine Cardiovascular Disease
DX: R07.89 Other chest pain (principal); I25.10 Atherosclerotic heart disease of native coronary artery without angina pectoris; E11.9 Type 2 diabetes mellitus without complications; E78.5 Hyperlipidemia, unspecified; I10 Essential (primary) hypertension; I25.110 Atherosclerotic heart disease of native coronary artery with unstable angina pectoris; I08.1 Rheumatic disorders of both mitral and tricuspid valves; Z79.82 Long term (current) use of aspirin; Z79.84 Long term (current) use of oral hypoglycemic drugs; Z79.899 Other long term (current) drug therapy; Z95.5 Presence of coronary angioplasty implant and graft; R94.39 Abnormal result of other cardiovascular function study